=== PATIENT | male | born 1975 | race Caucasian/White ===

== ENCOUNTER 2020-11-04 17:54 | Emergency (ER) | payer BC ==
[~2020-11-04] VITALS: Ht 172.7 cm; Wt 76.4 kg
--- NOTE | 2020-11-04 18:29 | NUR ---
Pt given 1 L NS en route.
[2020-11-04 18:52] LABS: ALBUMIN 4.1 G/DL (3.4-5.0); ANION GAP 14 (8-16); BLOOD UREA NITROGEN 15 MG/DL (7-18); BUN/CREATININE RATIO 9.9 (5.4-32.0); CALCIUM 8.9 MG/DL (8.5-10.1); CHLORIDE 107 MMOL/L (99-107); CREATINE KINASE 95 U/L (39-308); CREATININE 1.52 MG/DL (0.60-1.10); GLUCOSE 85 MG/DL (70-104); POTASSIUM 4.4 MMOL/L (3.5-5.1); SODIUM 143 MMOL/L (135-145); TOTAL CARBON DIOXIDE 21.9 MMOL/L (24-32); eGFR 50 ML/MIN
[2020-11-04 19:21] VITALS: BP 127/86
== END 2020-11-04 19:23 | disposition home or self-care (01) ==
LOC: ER 17:55
DX: E86.0 Dehydration (principal); R79.82 Elevated C-reactive protein (CRP)
CPT/HCPCS: 36415; 80048; 82550; 99283